=== PATIENT | male | born 1945 | race Caucasian/White ===

== ENCOUNTER 2024-01-19 14:45 | Emergency (ER) | payer MEDICARE, BC, SELFPAY ==
[2024-01-19 14:46] VITALS: BP 143/81; BMI 25.9
--- NOTE | 2024-01-19 15:46 | ED.GENMED ---
History of Present Illness
General
Chief Complaint: Eye Problems
Source: patient
Exam Limitations: none
Time Seen by Provider: 01/19/24 15:23
Nursing documentation reviewed up to this point in time: agreed with
History of Present Illness
History of Present Illness:
78 y/o M generally healthy
here with concerns for R eye blurriness after splashing an insecticide in his R eye 3 days ago
it was 2 chemicals ( talstar and termidor) diluted with water
he says it was very small, possibly just a drop he felt in the right lateral corner of the eye
he didn't wash it out right away until about an hour later when he then irrigated for 5 min
now ever since then he is wondering if his vision is slightly blurry
he says he always has blurry vision in the R eye after having cataract surgery 2 years ago
his left eye vision is normal, right is slightly blurry and ever since surgery he gets a line in the center of his vision that looks like a wave
he says that he has had this off an don for years
and isn't sure if it is slightly worse or more present than previous and just thought he should get his eye looked at
sypmtoms are certainly no worse today than the past 2 days
no headache, diplopia, fever, eye swelling, eye pain, fb sensation, flashing lights, floaters
Past History
Past History
ED Past Medical History: Other (Vertigo, hard of hearing, BPH, prostate cancer, cataracts)
ED Past Surgical History: None and Orthopedic
Social History
Tobacco: Former smoker
Alcohol: Occasional
Personal:
Living: with family
Employment: Employed
Review of Systems
Review of Systems
Allergies reviewed?: Yes
All Other Systems: Not applicable
Phy Exam
Physical Exam
Physical Exam:
GENERAL: Alert , in no apparent distress, comfortable at rest
HEAD: NCAT
EYE: slight strabismus R eye
no palsy
normal pupil
normal inspection to naked eye
no clear tearing
tetracaine applied
fluroscein uptkae small dot on the r cornea just inferior to the pupil
PH between 6.5 and 7
visual sigala normal
NEUROLOGICAL: Alert and oriented, no focal neuro deficits, ,
SKIN: Warm and dry, no swelling
PSYCH: Normal and appropriate interaction.
Course
Orders/Labs/Results
Orders:
Orders
01/19/24 15:44
Visual Acuity- Treatment ONCE
Vital Signs
Initial and Last Documented VS:
Initial Vital Signs
Temp Pulse Resp BP Pulse Ox
98.4 F 70 16 143/81 98
01/19/24 14:46 01/19/24 14:46 01/19/24 14:46 01/19/24 14:46 01/19/24 14:46
Last Documented Vital Signs
Temp Pulse Resp BP Pulse Ox
98.4 F 70 16 143/81 98
01/19/24 14:46 01/19/24 14:46 01/19/24 14:46 01/19/24 14:46 01/19/24 14:46
MDM/Problems Addressed
Differential Diagnosis Includes:
corneal abraion, chemical conjunctivitis, strabismus
MDM/Problems Addressed:
78 y/o M with no pmh
here with right eye irritation after splashing chemical which was diluted 3 days ago
very small amount
flushed but delayed
having some occ clear tearing
chronically has blurry vision in that eye and isn't sure if it is worse
realy after talking with him at length, it does not seem any worse than usual an this 'wave of line' in the vision that comes and goes chronically
the ph is normal - closer to 7 than 6.5
he has a very tiny uptake of fluroscein in the right cornea
no fb
i did look up both chemicals whch say to irrigate the eye and if irritaion persists, contact eye doctor; this is not a concentrated base chemical
will recommend eye f/u tomorrow
oflox drops
DW ED ATTENDING, AGREES
*Critical Care Note
Total Time (30-74mins, 75-104mins- exclusive of procedures): Not Applicable
ED Attending Note
-
Portions of this chart may have been created with voice recognition software.� Occasional wrong word or��sound alike� substitutions may have occurred due to the inherent limitations of voice recognition software.
Discharge Plan
Departure
Patient Disposition: Home (Routine Discharge)
Date of Disposition: 01/19/24
Time of Disposition: 15:59
Patient with high blood pressure during this ER visit?: Yes
Covid-19: Not Applicable
Discharge Problem:
Corneal abrasion, Chemical exposure of eye
Instructions: Corneal Abrasion (DC)
Prescriptions:
New
ofloxacin [Ocuflox] 0.3 % drops
2 drp RIGHT EYE TID 7 Days Qty: 5 0RF
No Action
tamsulosin 0.4 MG capsule
0.4 mg PO HS
oxycodone 5 MG tablet
5 mg PO Q6HPRN PRN (Reason: moderate-severe pain) Qty: 30 0RF
Rx Instructions:
1 tab moderate pain or 2 if pain severe
Dx total joint replacement
ongoing therapy
meloxicam 15 MG tablet
15 mg PO DAILY Qty: 14 0RF
Rx Instructions:
take with food
famotidine 20 MG tablet
20 mg PO HS Qty: 30 0RF
mupirocin 1 APPLIC ointment
1 applic topical BID Qty: 1 0RF
Referrals:
Jovany Babcock MD [Active] - Tomorrow
Bridgette Perez MD [Family Provider] -
Activity Restrictions/Additional Instructions:
YOU DID HAVE A SMALL AREA OF UPTAKE ON YOUR CORNEA SUGGESTING A SMALL SCRATCH
YOU HAD NORMAL ACID/BASE PH OF YOUR EYE
FOR YOUR VISION CHANGES, THESE SEEM CHRONIC BUT YUO NEED TO SEE AN EYE DOCTOR TOMORROW
IN THE FUTURE ,FOR ANY EXPOSURES OF CHEMICAL IN THE EYE, IMMEDIATELY WASH OUT WITH SALINE OR STERILE WATER
RETURN FOR ANY CONCERNS.
Interventions
Interventions:
*Risk Screen - Suicide Last Done: 01/19/24 14:46
*General Assessment Last Done: 01/19/24 15:26
*Neglect/Abuse Screening Last Done: 01/19/24 14:46
*ED COVID-19 Vaccine History Last Done: 01/19/24 15:26
Discharge Date and Time
Print Language: [id number]
== END 2024-01-19 16:17 | disposition home or self-care (01) ==
LOC: EMR 14:45
PROVIDERS: EMERGENCY PHYSICIAN Student in an Organized Health Care Education/Training Program; FAMILY PHYSICIAN Internal Medicine
DX: S05.01XA Injury of conjunctiva and corneal abrasion without foreign body, right eye, initial encounter (principal); X58.XXXA Exposure to other specified factors, initial encounter; R03.0 Elevated blood-pressure reading, without diagnosis of hypertension; Z77.098 Contact with and (suspected) exposure to other hazardous, chiefly nonmedicinal, chemicals; Z87.891 Personal history of nicotine dependence
CPT/HCPCS: 99283

== ENCOUNTER → 2025-07-06 07:25 | Outpatient (REF) | payer MEDICARE, BC, SELFPAY | LOC: HWRCS 07:25 | PROVIDERS: ATTENDING PHYSICIAN Internal Medicine Cardiovascular Disease | DX: R00.1 Bradycardia, unspecified (principal); R01.1 Cardiac murmur, unspecified; I77.810 Thoracic aortic ectasia; I35.8 Other nonrheumatic aortic valve disorders; I51.7 Cardiomegaly | CPT/HCPCS: 93306 ==